=== PATIENT | female | born 1970 | race American Indian/Alaskan Native ===

== ENCOUNTER 2017-01-19 11:56 | Emergency (ER) | payer SELFPAY ==
[2017-01-19] MEDS ORDERED: MOTRIN PO ONE (15:55)
--- NOTE | 2017-01-19 15:59 | Emergency Department Report ---
HPI - General Chief Complaint: Pain General Time Seen by Provider: 01/19/17 13:41 - HPI HPI: 46-year-old -[place] female with no past medical history comes in for pain in the left side of her foot that radiates from the bottom of her left foot to the calf times. She reports that pain is worse when she steps or walks. She reports it even hurts when she puts a bedsheet over it. Patient does admit to eating a lot of meat. ED Past Medical Hx - Past Medical History Previous Medical History?: Yes Hx Hypertension: Yes (no meds) - Surgical History Past Surgical History?: No - Social History Smoking Status: Never Smoker Substance Use Type: Alcohol, Non Opiate Pain - Medications Home Medications: Home Medications Medication Instructions Recorded Confirmed Last Taken Type Indomethacin [Indocin] 50 mg RC TID #30 supp.rect 01/19/17 Unknown Rx ED Review of Systems ROS: Stated complaint: LFT SIDE BODY PAIN Other details as noted in HPI Physical Exam - Physical Exam Vital Signs: Vital Signs 01/19/17 12:06 Temperature 100.3 F H Pulse Rate 85 Respiratory 20 Rate Blood Pressure 171/95 O2 Sat by Pulse 98 Oximetry General: GENERAL: Alert and oriented x3, no apparent distress, Normal Gait, atraumatic. HEAD: Head is normocephalic and a-traumatic. EYES: Extra ocular muscles are intact. Pupils are equal, round, and reactive to light and accommodation. EXTREMITIES/MUSCULOSKELETAL: No cyanosis, clubbing, rash, lesions or edema. Full ROM bilaterally. UE/LE Pulses 2+ bilaterally. LE and UE 5+ strength bilaterally. Tenderness to the left great metatarsal in instep NEUROLOGIC: No focal Deficit, Cranial nerves II through XII are grossly intact. No loss of sensation, No facial droop, Negative rhomberg. PSYCHIATRIC: Mood is congruent with affect, denies suicidal or homicidal ideations. SKIN: Warm and dry, No lesions, No ulceration or induration present ED Course Vital Signs 01/19/17 12:06 Temperature 100.3 F H Pulse Rate 85 Respiratory 20 Rate Blood Pressure 171/95 O2 Sat by Pulse 98 Oximetry - Reevaluation(s) Reevaluation #1: 01/19/17 17:24 Patient reports that she feels better after having Ibuprofen. ED Medical Decision Making - Lab Data Result diagrams: 01/19/17 16:12 01/19/17 16:12 Critical care attestation.: If time is entered above; I have spent that time in minutes in the direct care of this critically ill patient, excluding procedure time. ED Disposition Clinical Impression: Elevated blood pressure Gout Qualifiers: Gout site: toe Gout etiology: unspecified cause Laterality: left Chronicity: acute Qualified Code(s): M10.9 - Gout, unspecified Disposition: DISCHARGED TO HOME OR SELFCARE Is pt being admited?: No Does the pt Need Aspirin: No Condition: Stable Instructions: Acute Gouty Arthritis (ED) Additional Instructions: Take medication as prescribed. Low purine diet which consist low meets no beer or wine. Take medication as prescribed. Highly recommend to have your blood pressure recheck since it was elevated in the ER. Prescriptions: Indomethacin [Indocin] 50 mg RC TID #30 supp.rect Referrals: PRIMARY CAREMD [Primary Care Provider] - 3-5 Days ADRIANE RADFORD MD [Staff Physician] - 3-5 Days [facility] [Outside] - 3-5 Days Forms: Work/School Release Form(ED)
--- NOTE | 2017-01-19 16:47 | XRay Report ---
FINAL REPORT EXAM: XR FOOT 2V LT HISTORY: left foot painToe in instep TECHNIQUE: 2 views Left foot PRIORS: None. FINDINGS: No fracture or dislocation identified. Joint spaces are within normal limits. No erosive bony change identified. No bony lesions are identified. IMPRESSION: Negative foot series
[2017-01-19 16:55] LABS: Anion Gap 20 mmol/L; BUN/Creatinine Ratio 14.28; Blood Urea Nitrogen 10 mg/dL (7-17); Calcium 9.7 mg/dL (8.4-10.2); Carbon Dioxide 23 mmol/L (22-30); Chloride 97.3 mmol/L (98-107); Glucose 90 mg/dL (65-100); Potassium 3.9 mmol/L (3.6-5.0); Sodium 136 mmol/L (137-145); Uric Acid 7.3 mg/dL (3.5-7.6)
[2017-01-19 17:03] LABS: Basophils % (Auto) 0.7 % (0.0-1.8); Eosinophils % (Auto) 1.2 % (0.0-4.3); Hematocrit 39.9 % (30.3-42.9); Hemoglobin 12.9 gm/dl (10.1-14.3); Mean Corpuscular HGB Conc 33 % (30-34); Mean Corpuscular Hemoglobin 30 pg (28-32); Mean Corpuscular Volume 91 fl (79-97); Platelet Count 332 K/mm3 (140-440); Red Blood Count 4.36 M/mm3 (3.65-5.03); Red Cell Distribution Width 13.5 % (13.2-15.2); White Blood Count 9.1 K/mm3 (4.5-11.0)
[2017-01-19 17:45] VITALS: BP 128/87
== END 2017-01-19 17:45 | disposition home or self-care (01) ==
LOC: ED 11:56
DX: I10 Essential (primary) hypertension (principal); M10.9 Gout, unspecified
CPT/HCPCS: 36415; 80048; 84550; 85025

== ENCOUNTER 2017-02-18 07:50 | Emergency (ER) | payer SELFPAY ==
[2017-02-18 08:06] VITALS: BP 146/84
--- NOTE | 2017-02-18 09:12 | Emergency Department Report ---
HPI - General Chief Complaint: Extremity Injury, Lower - HPI HPI: 46-year-old -[place] female comes in with complaint of bilateral foot pain times greater than one month. She describes the pain as sharp shooting pain with burning. She also complains of bilateral hand pain times a couple weeks same kind of pain in her palms of her hand. Sharp shooting. She also has complaints of acid reflux. Worse with lying down and feels liquid comes up to the back of her throat and nose. She denies any vomiting denies any fever denies any abdominal pain. She does admit that she has taken Zantac 450 mg twice a day without much relief. She also states she's taken Motrin and Advil for feet pain. Without much resolution of pain. ED Past Medical Hx - Past Medical History Hx Hypertension: Yes (no meds) Additional medical history: GOUT - Surgical History Past Surgical History?: No - Social History Smoking Status: Current Every Day Smoker Substance Use Type: Alcohol - Medications Home Medications: Home Medications Medication Instructions Recorded Confirmed Last Taken Type Indomethacin [Indocin] 50 mg RC TID #30 supp.rect 01/19/17 Unknown Rx Omeprazole 40 mg PO QDAY #30 capsule.dr 02/18/17 Unknown Rx traMADol [Ultram 50 MG tab] 50 mg PO Q6HR PRN #20 tablet 02/18/17 Unknown Rx ED Review of Systems ROS: Stated complaint: SHARP PAIN/HANDS/FEET/ACID REFLUX Other details as noted in HPI Constitutional: denies: chills, fever Eyes: denies: eye pain, eye discharge, vision change ENT: denies: ear pain, throat pain Respiratory: denies: cough, shortness of breath, wheezing Cardiovascular: denies: chest pain, palpitations Endocrine: no symptoms reported Gastrointestinal: denies: abdominal pain, nausea, vomiting, diarrhea Physical Exam - Physical Exam Vital Signs: Vital Signs 02/18/17 08:00 Temperature 98.3 F Pulse Rate 74 Respiratory 17 Rate Blood Pressure 146/84 O2 Sat by Pulse 97 Oximetry Physical Exam: GENERAL: Alert and oriented x3, no apparent distress, Normal Gait, atraumatic. HEAD: Head is normocephalic and a-traumatic. MOUTH:Mouth is well hydrated and without lesions. Tonsils nonerythematous or swollen, Uvula midline, Tongue not elevated. Mucous membranes are moist. Posterior pharynx clear, no exudate or lesions. Patent airways. NECK: Supple. Non edematous, No carotid bruits. No lymphadenopathy or thyromegaly. LUNGS: Symetrical with respiration, No wheezing, no rales or crackles, CTAB. HEART: S1, S2 present, regular rate and rhythm without murmur, no rubs, no gallops. ABDOMEN: No organomegaly was noted,Positive bowel sounds, soft, and non- distended. . Nontender to palpation on all Quadrants, NO CVA tenderness. BREAST: Symetrical, Supple bilaterally, No Masses, lumps, lesions, ulcerations. EXTREMITIES/MUSCULOSKELETAL: No cyanosis, clubbing, rash, lesions or edema. Full ROM bilaterally. UE/LE Pulses 2+ bilaterally. LE and UE 5+ strength bilaterally bilateral tenderness to the soles of the feet. NEUROLOGIC: No focal Deficit, Cranial nerves II through XII are grossly intact. No loss of sensation, No facial droop, Negative rhomberg. PSYCHIATRIC: Mood is congruent with affect, SKIN: Warm and dry, No lesions, No ulceration or induration present ED Course Vital Signs 02/18/17 08:00 Temperature 98.3 F Pulse Rate 74 Respiratory 17 Rate Blood Pressure 146/84 O2 Sat by Pulse 97 Oximetry ED Medical Decision Making - Medical Decision Making Patient's been evaluated by this provider fast track. Discussed patient that we will refer her to a case management assistant. Discussed with patient that we will place her on some omeprazole 40 mg daily. Discussed with patient that she needs to avoid lying down after eating. Avoid spicy foods avoid citric foods tomato-based foods sodas caffeine drinks. Discussed with patient that we will refer her to a audiology assistant for further evaluation of her feet. Discussed the patient I will give her a prescription for trauma at all for a few days if that helps her for feet. Critical care attestation.: If time is entered above; I have spent that time in minutes in the direct care of this critically ill patient, excluding procedure time. ED Disposition Clinical Impression: Bilateral foot pain GERD (gastroesophageal reflux disease) Qualifiers: Esophagitis presence: esophagitis presence not specified Qualified Code(s): K21.9 - Gastro-esophageal reflux disease without esophagitis Disposition: DISCHARGED TO HOME OR SELFCARE Is pt being admited?: No Does the pt Need Aspirin: No Condition: Stable Additional Instructions: Please follow up with the audiology assistant a case management assistant and her primary care provider for further evaluation. Please return to the emergency room symptoms persist or gets worse. Prescriptions: Omeprazole 40 mg PO QDAY #30 capsule. traMADol [Ultram 50 MG tab] 50 mg PO Q6HR PRN #20 tablet PRN Reason: Pain Referrals: PRIMARY CARE, [Primary Care Provider] - 3-5 Days MIKE SIMMONS DPM [Staff Physician] - 3-5 Days [facility] [Provider Group] - 3-5 Days [facility] [Outside] - 3-5 Days Forms: Work/School Release Form(ED)
== END 2017-02-18 09:45 | disposition home or self-care (01) ==
LOC: ED 07:50
DX: M79.671 Pain in right foot (principal); M79.672 Pain in left foot; K21.9 Gastro-esophageal reflux disease without esophagitis; I10 Essential (primary) hypertension; M10.9 Gout, unspecified; F17.200 Nicotine dependence, unspecified, uncomplicated
CPT/HCPCS: 99282

== ENCOUNTER 2017-06-05 10:57 | Emergency (ER) | payer OTHER ==
[2017-06-05 11:09] VITALS: BP 144/85
--- NOTE | 2017-06-05 11:43 | Emergency Department Report ---
ED Back Pain/Injury HPI - General Chief Complaint: Back Pain/Injury Stated Complaint: BACK PAIN Time Seen by Provider: 06/05/17 11:24 Source: patient, EMS Limitations: Physical Limitation - History of Present Illness Initial Comments: This is a 46-year-old female that presents to the ED c/o of back pain x1 day. Patient stated she was at work lifting sweet tea bucket at work and while putting it down she felt sharp pain to the back. Patient denies any trauma to region. Patient denies any numbness, tingling, n/v, bladder or bowel instability , SOB, chest pain, fever, chills, headache or stiff neck. Patient stated has history of back pain. Patient stated allergies aspirin. HX of HTN. MD Complaint: back pain -: Gradual, This morning Similar Symptoms Previously: Yes Place: work Radiation: none Severity: mild Severity scale (0 -10): 6 Quality: sharp Consistency: constant Improves With: immobilization, supine Worsens With: movement, walking Context: while lifting, turning/twisting Associated Symptoms: denies other symptoms. denies: confusion, weakness, chest pain, numbness, difficulty walking, cough, difficulty urinating, diaphoresis, incontinence, fever/chills, constipation, headaches, abdominal pain, loss of appetite, malaise, nausea/vomiting, rash, seizure, shortness of breath, syncope - Related Data Previous Rx's Medication Instructions Recorded Last Taken Type Cyclobenzaprine [Flexeril] 10 mg PO TID PRN #15 tablet 06/05/17 Unknown Rx Ibuprofen [Motrin 600 MG tab] 600 mg PO Q8H PRN #30 tablet 06/05/17 Unknown Rx Allergies Allergy/AdvReac Type Severity Reaction Status Date / Time aspirin Allergy Unknown Verified 06/05/17 11:05 ED Review of Systems ROS: Stated complaint: BACK PAIN Other details as noted in HPI Constitutional: denies: chills, fever Eyes: denies: eye pain, eye discharge, vision change ENT: denies: ear pain, throat pain Respiratory: denies: cough, shortness of breath, wheezing Cardiovascular: denies: chest pain, palpitations Endocrine: no symptoms reported Gastrointestinal: denies: abdominal pain, nausea, diarrhea Genitourinary: denies: urgency, dysuria, discharge Musculoskeletal: denies: back pain, joint swelling, arthralgia Skin: denies: rash, lesions Neurological: denies: headache, weakness, paresthesias Psychiatric: denies: anxiety, depression Hematological/Lymphatic: denies: easy bleeding, easy bruising ED Past Medical Hx - Past Medical History Previous Medical History?: No Hx Hypertension: Yes (no meds) Additional medical history: GOUT - Surgical History Past Surgical History?: No - Social History Smoking Status: Current Every Day Smoker Substance Use Type: Alcohol - Medications Home Medications: Home Medications Medication Instructions Recorded Confirmed Last Taken Type Cyclobenzaprine [Flexeril] 10 mg PO TID PRN #15 tablet 06/05/17 Unknown Rx Ibuprofen [Motrin 600 MG tab] 600 mg PO Q8H PRN #30 tablet 06/05/17 Unknown Rx ED Physical Exam - General Limitations: Physical Limitation General appearance: alert, in no apparent distress - Head Head exam: Present: atraumatic, normocephalic - Eye Eye exam: Present: normal appearance, PERRL, EOMI. Absent: scleral icterus, conjunctival injection, nystagmus, periorbital swelling, periorbital tenderness Pupils: Present: normal accommodation - ENT ENT exam: Present: normal exam, normal orophraynx, mucous membranes moist, TM's normal bilaterally, normal external ear exam - Neck Neck exam: Present: normal inspection, full ROM. Absent: tenderness, meningismus, lymphadenopathy, thyromegaly - Respiratory Respiratory exam: Present: normal lung sounds bilaterally. Absent: respiratory distress, wheezes, rales, rhonchi, stridor, chest wall tenderness, accessory muscle use - Cardiovascular Cardiovascular Exam: Present: regular rate, normal rhythm, normal heart sounds. Absent: bradycardia, tachycardia, irregular rhythm, systolic murmur, diastolic murmur, rubs, gallop - GI/Abdominal GI/Abdominal exam: Present: soft, normal bowel sounds. Absent: distended, tenderness, guarding, rebound, rigid, diminished bowel sounds - Rectal Rectal exam: Present: deferred - Extremities Exam Extremities exam: Present: normal inspection, full ROM, normal capillary refill. Absent: tenderness, pedal edema, joint swelling, calf tenderness - Back Exam Back exam: Present: normal inspection, full ROM, paraspinal tenderness (lumbar region). Absent: tenderness, CVA tenderness (R), CVA tenderness (L), muscle spasm, vertebral tenderness, rash noted - Expanded Back Exam Expanded Back exam: Present: normal rectal tone (as per patient). Absent: saddle anesthesia Back exam: Negative Straight Leg Raising: Left, Right - Neurological Exam Neurological exam: Present: alert, oriented X3, CN II-XII intact, normal gait, reflexes normal - Psychiatric Psychiatric exam: Present: normal affect, normal mood - Skin Skin exam: Present: warm, dry, intact, normal color. Absent: rash - Other Other exam information: Negative spinal tenderness. ED Course Vital Signs 06/05/17 11:06 Temperature 98.2 F Pulse Rate 64 Respiratory 22 Rate Blood Pressure 144/85 O2 Sat by Pulse 98 Oximetry - Reevaluation(s) Reevaluation #1: 06/05/17 11:46 Patient is laying in bed and speaking in full sentences with no signs of distress. ED Medical Decision Making - Medical Decision Making ED course; this is a 46-year-old female that presents with low back strain versus muscle spasm 1- patient hemodynamically stable. Patient was examined by myself. There is negative spinal tenderness. Exam of muscle spasm with low back strain. 2- patient be treated with Flexeril and ibuprofen and discharged. Patient received Toradol 30 mg IM the ED for pain. 3- patient was instructed to follow-up with her primary care doctor in 3-5 days or if symptoms such as such as bladder or bowel stability, numbness, tingling, chest pain or short of breath returns or ER as soon as possible. 4- At time time of discharge, the patient does not seem toxic or ill in appearance. No acute signs of distress noted. Patient agrees to discharge treatment plan of care. No further questions noted by the patient. Critical care attestation.: If time is entered above; I have spent that time in minutes in the direct care of this critically ill patient, excluding procedure time. ED Disposition Clinical Impression: Muscle spasm Low back strain Qualifiers: Encounter type: initial encounter Qualified Code(s): S39.012A - Strain of muscle, fascia and tendon of lower back, initial encounter Disposition: TO HOME OR SELFCARE Is pt being admited?: No Does the pt Need Aspirin: No Condition: Stable Instructions: Muscle Strain (ED), Low Back Strain (ED), Ibuprofen (By mouth), Cyclobenzaprine (By mouth) Additional Instructions: Take ibuprofen and Flexeril as prescribed. Do not operate heavy machinery while taking Flexeril due to sedation Follow-up with her primary care doctor 3-5 days or symptoms such as bladder or bowel stability, chest pain, shortness of breath, numbness or tingling return to emergency room as soon as possible. Prescriptions: Cyclobenzaprine [Flexeril] 10 mg PO TID PRN #15 tablet PRN Reason: Muscle Spasm Ibuprofen [Motrin 600 MG tab] 600 mg PO Q8H PRN #30 tablet PRN Reason: Pain Referrals: PRIMARY CAREMD [Referring] - 3-5 Days TERI EDWARDS MD [Staff Physician] - 3-5 Days [facility] [Outside] - 3-5 Days [facility] [Outside] - 3-5 Days Forms: Work/School Release Form(ED)
[2017-06-05] MEDS ORDERED: TORADOL IM ONE (11:52)
== END 2017-06-05 12:25 | disposition home or self-care (01) ==
LOC: ED 10:57
DX: S39.012A Strain of muscle, fascia and tendon of lower back, initial encounter (principal); I10 Essential (primary) hypertension; M10.9 Gout, unspecified; F17.210 Nicotine dependence, cigarettes, uncomplicated; Z88.6 Allergy status to analgesic agent; X50.0XXA Overexertion from strenuous movement or load, initial encounter; Y93.89 Activity, other specified; Y92.89 Other specified places as the place of occurrence of the external cause; Y99.8 Other external cause status
CPT/HCPCS: 96372; 99283; J1885

== ENCOUNTER 2017-10-13 12:01 | Emergency (ER) | payer SELFPAY ==
[2017-10-13 13:06] VITALS: BP 141/74
--- NOTE | 2017-10-13 15:48 | Emergency Department Report ---
ED Lower Extremity HPI - General Chief Complaint: Pain General Stated Complaint: PAIN IN HANDS/FEET Time Seen by Provider: 10/13/17 15:10 Source: patient Mode of arrival: Ambulatory Limitations: No Limitations - History of Present Illness Initial Comments: This is a 46-year-old female nontoxic, well nourished in appearance, no acute signs of distress presents to the ED with c/o of chronic intermittent foot pain. Patient denies any trauma to the region. Patient describes pain as aching with level of 6/10. Patient denies any numbness, tingling, fever, chills, headache, nausea, vomiting, stiff neck. Patient stated has also intermittent pains in the hands. Patient states allergies to aspirin. PMH includes HTN. Patient stated she walks a lot for work. MD Complaint: foot injury -: year(s) Injury: Foot: Right, Left Severity: mild Severity scale (0 -10): 8 Improves With: nothing Worsens With: nothing Associated Symptoms: ambulatory. denies: snap/pop sensation, swelling, numbness , tingling, unable to bear weight, able to partially bear weight - Related Data Previous Rx's Medication Instructions Recorded Last Taken Type Cyclobenzaprine [Flexeril] 10 mg PO TID PRN #15 tablet 06/05/17 Unknown Rx Ibuprofen [Motrin 600 MG tab] 600 mg PO Q8H PRN #30 tablet 06/05/17 Unknown Rx Ibuprofen [Motrin] 600 mg PO Q8H PRN #30 tablet 10/13/17 Unknown Rx predniSONE [Deltasone] 40 mg PO QDAY #5 tab 10/13/17 Unknown Rx Allergies Allergy/AdvReac Type Severity Reaction Status Date / Time aspirin Allergy Unknown Verified 06/05/17 11:05 ED Review of Systems ROS: Stated complaint: PAIN IN HANDS/FEET Other details as noted in HPI Constitutional: denies: chills, fever Eyes: denies: eye pain, eye discharge, vision change ENT: denies: ear pain, throat pain Respiratory: denies: cough, shortness of breath, wheezing Cardiovascular: denies: chest pain, palpitations Endocrine: no symptoms reported Gastrointestinal: denies: abdominal pain, nausea, diarrhea Genitourinary: denies: urgency, dysuria, discharge Musculoskeletal: arthralgia. denies: back pain, joint swelling Skin: denies: rash, lesions Neurological: denies: headache, weakness, paresthesias Psychiatric: denies: anxiety, depression Hematological/Lymphatic: denies: easy bleeding, easy bruising ED Past Medical Hx - Past Medical History Hx Hypertension: Yes (no meds) Additional medical history: GOUT - Social History Smoking Status: Current Every Day Smoker Substance Use Type: None - Medications Home Medications: Home Medications Medication Instructions Recorded Confirmed Last Taken Type Cyclobenzaprine [Flexeril] 10 mg PO TID PRN #15 tablet 06/05/17 Unknown Rx Ibuprofen [Motrin 600 MG tab] 600 mg PO Q8H PRN #30 tablet 06/05/17 Unknown Rx Ibuprofen [Motrin] 600 mg PO Q8H PRN #30 tablet 10/13/17 Unknown Rx predniSONE [Deltasone] 40 mg PO QDAY #5 tab 10/13/17 Unknown Rx ED Physical Exam - General Limitations: No Limitations General appearance: alert, in no apparent distress - Head Head exam: Present: atraumatic, normocephalic, normal inspection - Eye Eye exam: Present: normal appearance, PERRL, EOMI. Absent: scleral icterus, conjunctival injection, nystagmus, periorbital swelling, periorbital tenderness Pupils: Present: normal accommodation - ENT ENT exam: Present: normal exam, normal orophraynx, mucous membranes moist, TM's normal bilaterally, normal external ear exam - Neck Neck exam: Present: normal inspection, full ROM. Absent: tenderness, meningismus, lymphadenopathy, thyromegaly - Respiratory Respiratory exam: Present: normal lung sounds bilaterally. Absent: respiratory distress, wheezes, rales, rhonchi, stridor, chest wall tenderness, accessory muscle use, decreased breath sounds, prolonged expiratory - Cardiovascular Cardiovascular Exam: Present: regular rate, normal rhythm, normal heart sounds. Absent: bradycardia, tachycardia, irregular rhythm, systolic murmur, diastolic murmur, rubs, gallop - GI/Abdominal GI/Abdominal exam: Present: soft, normal bowel sounds. Absent: distended, tenderness, guarding, rebound, rigid, diminished bowel sounds - Rectal Rectal exam: Present: deferred - Extremities Exam Extremities exam: Present: normal inspection, full ROM, tenderness (plantar foot ), normal capillary refill. Absent: pedal edema, joint swelling, calf tenderness - Expanded Lower Extremity Exam Left Hip exam: Present: normal inspection (bilateral exam), full ROM Upper Leg exam: Present: normal inspection (bilateral exam), full ROM Knee exam: Present: normal inspection (bilateral exam), full ROM Lower Leg exam: Present: normal inspection (bilateral exam), full ROM Ankle exam: Present: normal inspection, full ROM Foot/Toe exam: Present: normal inspection (bilateral exam), full ROM, tenderness (plantar foot). Absent: swelling, abrasion, laceration, ecchymosis, deformity, crepidus, dislocation, erythema, amputation, puncture wound, foreign body, calcaneal tenderness, tenderness at base of 5th metatarsal, nail avulsion , subungual hematoma Neuro vascular tendon exam: Present: no vascular compromise (bilateral exam). Absent: pulse deficit, abnormal cap refill, motor deficit, sensory deficit, tendon deficit, extremity cold to touch, pallor, abnormal 2-point discrimination , decreased fine/light touch, foot drop, peroneal nerve deficit, significant pain with passive ROM of distal joint Gait: Positive: observed and normal 1 - pain 2 - pain - Back Exam Back exam: Present: normal inspection, full ROM. Absent: tenderness, CVA tenderness (R), CVA tenderness (L), muscle spasm, paraspinal tenderness, vertebral tenderness, rash noted - Neurological Exam Neurological exam: Present: alert, oriented X3, CN II-XII intact, normal gait, reflexes normal - Psychiatric Psychiatric exam: Present: normal affect, normal mood - Skin Skin exam: Present: warm, dry, intact, normal color. Absent: rash ED Course Vital Signs 10/13/17 13:05 Temperature 98.3 F Pulse Rate 75 Respiratory 16 Rate Blood Pressure 141/74 [Right] O2 Sat by Pulse 97 Oximetry - Reevaluation(s) Reevaluation #1: 10/13/17 16:28 Patient is speaking in full sentences with no signs of distress noted. ED Lower Extremity MDM - Medical Decision Making This is a 46-year-old female that presents with plantar fasciitis. Patient is stable and was examined by me. Patient received Solu-Medrol in the day. Patient discharged with Motrin and prednisone. Patient was instructed Follow- up with a primary care doctor in 3-5 days or if symptoms worsen and continue return to emergency room as soon as possible. At time time of discharge, the patient does not seem toxic or ill in appearance. No acute signs of distress noted. Patient agrees to discharge treatment plan of care. No further questions noted by the patient. Critical care attestation.: If time is entered above; I have spent that time in minutes in the direct care of this critically ill patient, excluding procedure time. ED Disposition Clinical Impression: Plantar fasciitis Disposition: [id number] TO HOME OR SELFCARE Is pt being admited?: No Does the pt Need Aspirin: No Condition: Stable Instructions: Plantar Fasciitis (ED), Prednisone (By mouth), Ibuprofen (By mouth) Additional Instructions: Follow-up with a primary care doctor in 3-5 days or if symptoms worsen and continue return to emergency room as soon as possible. Prescriptions: Ibuprofen [Motrin] 600 mg PO Q8H PRN #30 tablet PRN Reason: Pain predniSONE [Deltasone] 40 mg PO QDAY #5 tab Referrals: ADELA ESPARZA MD [Staff Physician] - 3-5 Days JAIME DAWSON MD [Staff Physician] - 3-5 Days [facility] [Outside] - 3-5 Days Forms: Work/School Release Form(ED)
== END 2017-10-13 16:55 | disposition home or self-care (01) ==
LOC: ED 12:01
DX: M72.2 Plantar fascial fibromatosis (principal); I10 Essential (primary) hypertension; F17.200 Nicotine dependence, unspecified, uncomplicated; M10.9 Gout, unspecified; G89.29 Other chronic pain; Z88.6 Allergy status to analgesic agent
CPT/HCPCS: 96372; 99281; J2930

== ENCOUNTER 2018-01-24 12:22 | Inpatient (IN) | payer OTHER ==
[2018-01-24 14:08] LABS: Basophils % (Auto) 0.5 % (0.0-1.8); Eosinophils % (Auto) 0.4 % (0.0-4.3); Hematocrit 41.8 % (30.3-42.9); Hemoglobin 13.6 gm/dl (10.1-14.3); Lymphocytes # (Auto) 2.6 K/mm3 (1.2-5.4); Lymphocytes % (Auto) 37.1 % (13.4-35.0); Mean Corpuscular HGB Conc 33 % (30-34); Mean Corpuscular Hemoglobin 30 pg (28-32); Mean Corpuscular Volume 93 fl (79-97); Monocytes # (Auto) 0.7 K/mm3 (0.0-0.8); Monocytes % (Auto) 9.5 % (0.0-7.3); Platelet Count 293 K/mm3 (140-440); Red Blood Count 4.48 M/mm3 (3.65-5.03); Red Cell Distribution Width 13.4 % (13.2-15.2)
[2018-01-24 14:19] LABS: BUN/Creatinine Ratio 16; Blood Urea Nitrogen 11 mg/dL (7-17); Calcium 9.2 mg/dL (8.4-10.2); Hemolysis Index 17
[2018-01-24] MEDS ORDERED: NITRO-BID 2% TP ONE (21:05)
[2018-01-24] MEDS ORDERED: PLAVIX PO ONE (21:05)
--- NOTE | 2018-01-24 21:22 | Emergency Department Report ---
HPI - General Chief Complaint: Pain General Time Seen by Provider: 01/24/18 20:54 - HPI HPI: Room 3 The patient is a 47-year-old female presenting with a chief complaint of chest pain. The patient states 3 days ago she awakened with a headache, whole body pain and intermittent shooting pain in her left chest. The patient states the chest pain is sometimes associated with shortness of breath but she denies nausea or vomiting. Patient is uncertain if she became diaphoretic with her pain. Patient denies pleurisy or any recent long flights/long car trips. Patient denies any history of fever. Patient denies productive cough. Patient states she's never had a stress test or cardiac catheterization Location: [See above] Duration: Intermittent 4 days Quality: Sharp Severity: Moderate Modifying factors: [see above] Context: [see above] Mode of transportation: [not driving] ED Past Medical Hx - Past Medical History Previous Medical History?: No Hx Hypertension: Yes (no meds) Additional medical history: GOUT - Surgical History Past Surgical History?: No - Family History Family history: no significant - Social History Smoking Status: Current Every Day Smoker (2 cigarettes daily) Substance Use Type: None (denies illicit drug use), Alcohol (occasional) - Medications Home Medications: Home Medications Medication Instructions Recorded Confirmed Last Taken Type Cyclobenzaprine [Flexeril] 10 mg PO TID PRN #15 tablet 06/05/17 Unknown Rx Ibuprofen [Motrin 600 MG tab] 600 mg PO Q8H PRN #30 tablet 06/05/17 Unknown Rx Ibuprofen [Motrin] 600 mg PO Q8H PRN #30 tablet 10/13/17 Unknown Rx predniSONE [Deltasone] 40 mg PO QDAY #5 tab 10/13/17 Unknown Rx ED Review of Systems ROS: Stated complaint: FLANK PAIN/BODY ACHES Other details as noted in HPI Constitutional: denies: diaphoresis (?), fever Respiratory: shortness of breath Cardiovascular: chest pain Gastrointestinal: denies: nausea, vomiting Neurological: headache Physical Exam - Physical Exam Vital Signs: Vital Signs 01/24/18 01/24/18 01/24/18 13:22 20:43 20:45 Temperature 98.9 F 98.6 F Pulse Rate 83 68 Respiratory 18 12 Rate Blood Pressure 144/101 Blood Pressure 148/85 [Left] O2 Sat by Pulse 96 97 98 Oximetry 01/24/18 20:46 Temperature Pulse Rate 71 Respiratory 12 Rate Blood Pressure 130/106 Blood Pressure [Left] O2 Sat by Pulse 97 Oximetry Physical Exam: GENERAL: The patient is well-developed well-nourished female lying on stretcher not appear to be in acute distress. [] HEENT: Normocephalic. Atraumatic. Extraocular motions are intact. Patient has moist mucous membranes. NECK: Supple. Trachea midline CHEST/LUNGS: Clear to auscultation. There is no respiratory distress noted. HEART/CARDIOVASCULAR: Regular. There is no tachycardia. There is no gallop rub or murmur. ABDOMEN: Abdomen is soft, nontender. Patient has normal bowel sounds. There is no abdominal distention. SKIN: There is no rash. There is no diaphoresis. NEURO: The patient is awake, alert, and oriented. The patient is cooperative. The patient has no focal neurologic deficits. The patient has normal speech. Cranial nerves II through XII grossly intact, no drift MUSCULOSKELETAL: There is no evidence of acute injury. ED Course Vital Signs 01/24/18 01/24/18 01/24/18 13:22 20:43 20:45 Temperature 98.9 F 98.6 F Pulse Rate 83 68 Respiratory 18 12 Rate Blood Pressure 144/101 Blood Pressure 148/85 [Left] O2 Sat by Pulse 96 97 98 Oximetry 01/24/18 20:46 Temperature Pulse Rate 71 Respiratory 12 Rate Blood Pressure 130/106 Blood Pressure [Left] O2 Sat by Pulse 97 Oximetry ED Medical Decision Making - Lab Data Result diagrams: 01/24/18 13:48 01/24/18 13:48 Laboratory Tests 01/24/18 01/24/18 01/24/18 13:48 13:48 16:23 WBC 7.1 RBC 4.48 Hgb 13.6 Hct 41.8 MCV 93 MCH 30 MCHC 33 RDW 13.4 Plt Count 293 Lymph % (Auto) 37.1 H [place] % (Auto) 9.5 H Eos % (Auto) 0.4 Baso % (Auto) 0.5 Lymph # 2.6 [place] # 0.7 Eos # 0.0 Baso # 0.0 Seg Neutrophils % 52.5 Seg Neutrophils # 3.7 Sodium 141 Potassium 4.6 Chloride 101.3 Carbon Dioxide 27 Anion Gap 17 BUN 11 Creatinine 0.7 Estimated GFR > 60 BUN/Creatinine Ratio 16 Glucose 96 Calcium 9.2 Troponin T < 0.010 < 0.010 01/24/18 19:34 WBC RBC Hgb Hct MCV MCH MCHC RDW Plt Count Lymph % (Auto) [place] % (Auto) Eos % (Auto) Baso % (Auto) Lymph # [place] # Eos # Baso # Seg Neutrophils % Seg Neutrophils # Sodium Potassium Chloride Carbon Dioxide Anion Gap BUN Creatinine Estimated GFR BUN/Creatinine Ratio Glucose Calcium Troponin T < 0.010 - EKG Data -: EKG Interpreted by Me EKG shows normal: sinus rhythm Rate: normal - EKG Data When compared to previous EKG there are: previous EKG unavailable Interpretation: nonspecific ST-T wave dequan (T-wave inversion in lead 3. Flattened/biphasic T-wave in lead aVF.) - Radiology Data Radiology results: image reviewed (chest x-ray) interpreted by me: Chest x-ray-no focal infiltrates, no pneumothorax - Differential Diagnosis ACS, GERD, pericarditis Critical care attestation.: If time is entered above; I have spent that time in minutes in the direct care of this critically ill patient, excluding procedure time. ED Disposition Clinical Impression: Chest pain Disposition: OP ADMIT IP TO THIS HOSP Is pt being admited?: Yes Does the pt Need Aspirin: No (allergic. Plavix given) Condition: Fair Instructions: Chest Pain (ED) Referrals: PATRICK WOODS MD [Primary Care Provider] - 3-5 Days Time of Disposition: 21:24 (hospitalist paged (Dr. Chantelle Ozuna))
--- NOTE | 2018-01-24 21:29 | XRay Report ---
FINAL REPORT EXAM: XR CHEST 1V AP HISTORY: chest pain COMPARISON: None available. FINDINGS: Frontal view(s) of the chest obtained. Cardiac silhouette within normal limits. No gross consolidation or effusion. No pneumothorax. IMPRESSION: No grossly acute findings.
[2018-01-24] MEDS ORDERED: APRESOLINE IV PRN (22:02)
[2018-01-24] MEDS ORDERED: MORPHINE IV PRN (22:02)
[2018-01-24] MEDS ORDERED: TYLENOL PO PRN (22:02)
[2018-01-24] MEDS ORDERED: ZOFRAN IV PRN (22:02)
[2018-01-24] MEDS ORDERED: SODIUM CHLORIDE FLUSH SYRINGE 10 ML IV PRN (22:02)
--- NOTE | 2018-01-24 22:13 | History and Physical Report ---
History of Present Illness Date of examination: 01/24/18 History of present illness: 47 year old woman with no medical problem comes to the emergency room complaining of abdominal pain x 1 month and chest pain for 3 days. Abdominal pain is in the left lower quadrant, sore pain, intermittent every 5 minutes, radiating to the pack, intensity 6/10, cannot identify exacerbating or relieving factors. Chest pain is in the left chest, sharp, intermittent every 15 minutes, intensity 4/10, cannot identify exacerbating or relieving factors. denies nausea, vomiting, shortness of breath, diaphoresis PAST MEDICAL HISTORY:None PAST SURGICAL HISTORY:None SOCIAL HISTORY:smoke 2 cigarettes/day, drink 1 beer a day, no drugs FAMILY HISTORY: hypertension Medications and Allergies Allergies Allergy/AdvReac Type Severity Reaction Status Date / Time aspirin Allergy Unknown Verified 06/05/17 11:05 Home Medications Medication Instructions Recorded Confirmed Last Taken Type Cyclobenzaprine [Flexeril] 10 mg PO TID PRN #15 tablet 06/05/17 Unknown Rx Ibuprofen [Motrin 600 MG tab] 600 mg PO Q8H PRN #30 tablet 06/05/17 Unknown Rx Ibuprofen [Motrin] 600 mg PO Q8H PRN #30 tablet 10/13/17 Unknown Rx predniSONE [Deltasone] 40 mg PO QDAY #5 tab 10/13/17 Unknown Rx Active Meds: Active Medications Hydralazine HCl (Apresoline) 5 mg IV Q6HR PRN PRN Reason: Hypertension Exam - Physical Exam Narrative exam: Gen. appearance: Patient lying in bed, no apparent distress HEENT: Normocephalic, atraumatic, pupils equally round and reactive to light, extraocular movement intact, and no sclericterus,. No JVD or thyromegaly or nodule,neck supple, no carotid bruit ,mucous membranes moist, no exudate or erythema Heart: S1, S2, regular rate and rhythm Lungs: Clear to auscultation bilaterally, breathing comfortable Abdomen: Positive bowel sounds, nontender, nondistended, no organomegaly Extremity: No edema, cyanosis, clubbing Skin: No rash, nodules, warm, dry Neuro: Oriented 3, cranial nerves II-12 intact, speech is fluent, motor and sensory intact - Constitutional Vitals: Temp Pulse Resp BP Pulse Ox 98.6 F 64 12 164/95 97 01/24/18 20:45 03/24/18 21:22 01/24/18 20:46 01/24/18 21:22 01/24/18 20:46 Results - Labs CBC & Chem 7: 01/24/18 13:48 01/24/18 13:48 Labs: Abnormal lab results 01/24/18 Range/Units 13:48 Lymph % (Auto) 37.1 H (13.4-35.0) % [place] % (Auto) 9.5 H (0.0-7.3) % - Imaging and Cardiology EKG: image reviewed Chest x-ray: image reviewed Assessment and Plan Assessment Abdominal pain Hypertensive urgency, new onset Chest pain secondary to number 2 Plan Admit to medicine Obtain CT of the abdomen Start IV hydralazine, start norvasc Check cardiac enzymes, stress test IV morphine, dvt prophalaxis
--- NOTE | 2018-01-24 22:40 | Cat Scan Report ---
FINAL REPORT EXAM: CT ABDOMEN PELVIS WO CON HISTORY: llq pain COMPARISON: None available. TECHNIQUE: Contiguous axial images were obtained. Additional sagittal and coronal reformatted images were obtained. FINDINGS: Mild linear atelectasis or scarring at the lung bases. Mild diffuse fatty infiltration of the liver. The liver is enlarged measuring 25 centimeters in length. No calcified gallstones. Spleen and pancreas are grossly unremarkable. Mild nodular thickening of adrenal glands. No nephrolithiasis or hydronephrosis. Aorta and IVC normal in caliber. No distal ureteral urinary bladder calculi. Uterus and ovaries are grossly unremarkable. Multiple pelvic phleboliths. No free fluid or lymphadenopathy in the pelvic cavity. The appendix is gas-filled and normal in caliber measuring up to 6 millimeters in diameter. No adjacent fat stranding or fluid. There may be ingested pill within the lumen of the cecum. Portions of the colon are decompressed. This limits evaluation wall thickening. No adjacent fat stranding or fluid to suggest active inflammation of the decompressed bowel. Tiny right inguinal hernia containing fat only. Lumbar vertebral body heights are preserved. Bony pelvis is grossly intact. IMPRESSION: No gross focal inflammatory changes of the abdomen and pelvis. Mild wall thickening of portions of the left colon. This limits evaluation wall thickening. No adjacent fat stranding or fluid to suggest active inflammation of the decompressed bowel. The appendix is normal in caliber. No obstructive uropathy urolithiasis. Mild enlargement of the liver with fatty infiltration.
[2018-01-25 00:23] LABS: Creatine Kinase MB 2.4 ng/mL (0.0-4.0)
[2018-01-25 06:12] LABS: Basophils % (Auto) 0.4 % (0.0-1.8); Eosinophils # (Auto) 0.1 K/mm3 (0.0-0.4); Eosinophils % (Auto) 1.2 % (0.0-4.3); Hematocrit 38.1 % (30.3-42.9); Hemoglobin 12.6 gm/dl (10.1-14.3); Lymphocytes # (Auto) 1.5 K/mm3 (1.2-5.4); Lymphocytes % (Auto) 25.5 % (13.4-35.0); Mean Corpuscular HGB Conc 33 % (30-34); Mean Corpuscular Hemoglobin 30 pg (28-32); Mean Corpuscular Volume 92 fl (79-97); Monocytes # (Auto) 0.5 K/mm3 (0.0-0.8); Monocytes % (Auto) 8.9 % (0.0-7.3); Platelet Count 284 K/mm3 (140-440); Red Blood Count 4.14 M/mm3 (3.65-5.03); Red Cell Distribution Width 13.2 % (13.2-15.2)
[2018-01-25 06:41] LABS: BUN/Creatinine Ratio 14; Blood Urea Nitrogen 13 mg/dL (7-17); Calcium 8.8 mg/dL (8.4-10.2); Hemolysis Index 6
[2018-01-25 06:42] LABS: Creatine Kinase MB 1.9 ng/mL (0.0-4.0)
[2018-01-25] MEDS ORDERED: LEXISCAN IV ONE ×2 (08:30→08:34)
--- NOTE | 2018-01-25 09:53 | Gastroenterology Consultation ---
History of Present Illness - Reason for Consult Consult date: 01/25/18 LLQ pain Requesting physician: DARWIN REYES - History of Present Illness The patient is a 47 year old female admitted with a 3 day history of body aches , chills, chest pain, mild diarrhea and an increase in LLQ discomfort which she has had for at least a month. Consultation was requested for abdominal pain. She has had no fever and denies passing BRBPR or melenic stools. No history of weight loss. The patient has never had a colonoscopy. CT scan revealed no definite diverticulitis although the colon was collapsed in the left side and less sensitive for evaluation of wall thickening. No FH of IBD or colon neoplasia. She smokes a few cigarettes daily and has 1 beer per day. Past History Past Medical History: No medical history Past Surgical History: No surgical history Social history: smoking Medications and Allergies Allergies Allergy/AdvReac Type Severity Reaction Status Date / Time aspirin Allergy Unknown Verified 06/05/17 11:05 Home Medications Medication Instructions Recorded Confirmed Last Taken Type Cyclobenzaprine [Flexeril] 10 mg PO TID PRN #15 tablet 06/05/17 Unknown Rx Ibuprofen [Motrin 600 MG tab] 600 mg PO Q8H PRN #30 tablet 06/05/17 Unknown Rx Ibuprofen [Motrin] 600 mg PO Q8H PRN #30 tablet 10/13/17 Unknown Rx predniSONE [Deltasone] 40 mg PO QDAY #5 tab 10/13/17 Unknown Rx Active Meds: Active Medications Acetaminophen (Tylenol) 650 mg PO Q4H PRN PRN Reason: Pain MILD(1-3)/Fever >100.5/BHAT Amlodipine Besylate (Norvasc) 5 mg PO QDAY VIRY Enoxaparin Sodium (Lovenox) 40 mg SUB-Q QDAY VIRY Hydralazine HCl (Apresoline) 5 mg IV Q6H PRN PRN Reason: Hypertension Morphine Sulfate (Morphine) 2 mg IV Q4H PRN PRN Reason: Pain, Moderate (4-6) Ondansetron HCl (Zofran) 4 mg IV Q8H PRN PRN Reason: Nausea And Vomiting Sodium Chloride (Sodium Chloride Flush Syringe 10 Ml) 10 ml IV BID VIRY Sodium Chloride (Sodium Chloride Flush Syringe 10 Ml) 10 ml IV PRN PRN PRN Reason: LINE FLUSH Review of Systems - Review of Systems Constitutional: chills, fatigue, no weight loss, no weight gain, no fever Eyes: no change in vision Ears, Nose, Throat: no decreased hearing, no difficulty swallowing Breasts: deferred Cardiovascular: chest pain, no rapid/irregular heart beat, no shortness of breath, no syncope Respiratory: no shortness of breath, no wheezing Gastrointestinal: abdominal pain, no nausea, no vomiting, no constipation, no change in bowel habits, no melena, no hematochezia Rectal: no pain, no incontinence, no bleeding Female Genitourinary: deferred Musculoskeletal: no gait dysfunction, no joint pain, no muscle pain Integumentary: no rash, no pruritis, no jaundice Neurological: no paralysis, no weakness, no memory loss Psychiatric: no anxiety Hematologic/Lymphatic: no easy bruising, no easy bleeding Allergic/Immunologic: no wheezing Exam - Constitutional Vital Signs: Temp Pulse Resp BP Pulse Ox 98.9 F 69 18 103/60 99 01/25/18 08:44 01/25/18 08:44 01/25/18 08:44 01/25/18 08:44 01/25/18 08:44 General appearance: no acute distress, well-nourished - EENT Eyes: PERRL ENT: hearing intact, clear oral mucosa, dentition normal - Neck Neck: supple, normal ROM, no masses or JVD - Respiratory Respiratory effort: normal Respiratory: bilateral: CTA - Breasts Breasts: deferred - Cardiovascular Rhythm: regular Heart Sounds: Present: S1 & S2. Absent: gallop, rub Extremities: pulses intact, No edema, normal color, Full ROM - Gastrointestinal General gastrointestinal: Present: soft, tender (LLQ tenderness), non-distended , normal bowel sounds. Absent: hepatomegaly, splenomegaly, mass Rectal Exam: deferred - Genitourinary Female Genitourinary: deferred - Integumentary Integumentary: Present: clear, warm, dry - Neurologic Neurological: alert and oriented x3 - Psychiatric Psychiatric: appropriate mood/affect, intact judgment & insight, memory intact - Labs CBC & Chem 7: 01/25/18 05:51 01/25/18 05:51 Lab Results: Laboratory Results - last 24 hr 01/24/18 01/24/18 01/24/18 13:48 13:48 16:23 WBC 7.1 RBC 4.48 Hgb 13.6 Hct 41.8 MCV 93 MCH 30 MCHC 33 RDW 13.4 Plt Count 293 Lymph % (Auto) 37.1 H [place] % (Auto) 9.5 H Eos % (Auto) 0.4 Baso % (Auto) 0.5 Lymph # 2.6 [place] # 0.7 Eos # 0.0 Baso # 0.0 Seg Neutrophils % 52.5 Seg Neutrophils # 3.7 Sodium 141 Potassium 4.6 Chloride 101.3 Carbon Dioxide 27 Anion Gap 17 BUN 11 Creatinine 0.7 Estimated GFR > 60 BUN/Creatinine Ratio 16 Glucose 96 Calcium 9.2 Total Creatine Kinase CK-MB (CK-2) CK-MB (CK-2) Rel Index Troponin T < 0.010 < 0.010 01/24/18 01/24/18 01/25/18 19:34 23:14 05:51 WBC 6.0 RBC 4.14 Hgb 12.6 Hct 38.1 MCV 92 MCH 30 MCHC 33 RDW 13.2 Plt Count 284 Lymph % (Auto) 25.5 [place] % (Auto) 8.9 H Eos % (Auto) 1.2 Baso % (Auto) 0.4 Lymph # 1.5 [place] # 0.5 Eos # 0.1 Baso # 0.0 Seg Neutrophils % 64.0 Seg Neutrophils # 3.9 Sodium Potassium Chloride Carbon Dioxide Anion Gap BUN Creatinine Estimated GFR BUN/Creatinine Ratio Glucose Calcium Total Creatine Kinase 302 H CK-MB (CK-2) 2.4 CK-MB (CK-2) Rel Index 0.7 Troponin T < 0.010 < 0.010 01/25/18 01/25/18 05:51 05:51 WBC RBC Hgb Hct MCV MCH MCHC RDW Plt Count Lymph % (Auto) [place] % (Auto) Eos % (Auto) Baso % (Auto) Lymph # [place] # Eos # Baso # Seg Neutrophils % Seg Neutrophils # Sodium 136 L Potassium 4.5 Chloride 97.6 L Carbon Dioxide 27 Anion Gap 16 BUN 13 Creatinine 0.9 Estimated GFR > 60 BUN/Creatinine Ratio 14 Glucose 110 H Calcium 8.8 Total Creatine Kinase 258 H CK-MB (CK-2) 1.9 CK-MB (CK-2) Rel Index 0.7 Troponin T < 0.010 - Imaging CT Scan: report reviewed Assessment and Plan - Patient Problems (1) LLQ abdominal pain Current Visit: Yes Status: Acute Plan to address problem: May have mild diverticulitis although no definite evidence on CT scan. Would treat empirically for 10 days with Cipro and Flagyl and plan for outpatient colonoscopy. She is stable clinically and has a benign abdomen. Thank you for asking us to see her in consultation. (2) Chest pain Current Visit: Yes Status: Acute
--- NOTE | 2018-01-25 11:25 | Progress Note ---
Assessment and Plan Assessment and plan: Chest pain. Await Lexiscan results. Continue telemetry monitoring. EKG and cardiac isoenzymes are negative. Left lower quadrant abdominal pain. Etiology may be secondary to mild diverticulitis but no definite evidence on CT scan. Would treat empirically for 10 days with Cipro and Flagyl and plan for outpatient colonoscopy. Disposition. Patient will likely discharge in a.m. History Interval history: No present concerns or complaints for chest pain. Patient still complains of left lower abdominal pain Hospitalist Physical - Constitutional Vitals: Temp Pulse Resp BP Pulse Ox 98.9 F 69 18 103/60 99 01/25/18 08:44 01/25/18 08:44 01/25/18 08:44 01/25/18 08:44 01/25/18 08:44 General appearance: Present: no acute distress, well-nourished - EENT Eyes: Present: PERRL, EOM intact ENT: hearing intact, clear oral mucosa, dentition normal - Neck Neck: Present: supple, normal ROM - Respiratory Respiratory effort: normal Respiratory: bilateral: CTA - Cardiovascular Rhythm: regular Heart Sounds: Present: S1 & S2. Absent: gallop, rub - Extremities Extremities: no ischemia, No edema, Full ROM - Abdominal General gastrointestinal: soft, tender, non-distended, normal bowel sounds Localized gastrointestinal: tender: LLQ (mild) - Integumentary Integumentary: Present: clear, warm, dry - Neurologic Neurologic: CNII-XII intact, moves all extremities Results - Labs CBC & Chem 7: 01/25/18 05:51 01/25/18 05:51 Labs: Laboratory Last Values WBC 6.0 K/mm3 (4.5-11.0) 01/25/18 05:51 RBC 4.14 M/mm3 (3.65-5.03) 01/25/18 05:51 Hgb 12.6 gm/dl (10.1-14.3) 01/25/18 05:51 Hct 38.1 % (30.3-42.9) 01/25/18 05:51 MCV 92 fl (79-97) 01/25/18 05:51 MCH 30 pg (28-32) 01/25/18 05:51 MCHC 33 % (30-34) 01/25/18 05:51 RDW 13.2 % (13.2-15.2) 01/25/18 05:51 Plt Count 284 K/mm3 (140-440) 01/25/18 05:51 Lymph % (Auto) 25.5 % (13.4-35.0) 01/25/18 05:51 [place] % (Auto) 8.9 % (0.0-7.3) H 01/25/18 05:51 Eos % (Auto) 1.2 % (0.0-4.3) 01/25/18 05:51 Baso % (Auto) 0.4 % (0.0-1.8) 01/25/18 05:51 Lymph # 1.5 K/mm3 (1.2-5.4) 01/25/18 05:51 [place] # 0.5 K/mm3 (0.0-0.8) 01/25/18 05:51 Eos # 0.1 K/mm3 (0.0-0.4) 01/25/18 05:51 Baso # 0.0 K/mm3 (0.0-0.1) 01/25/18 05:51 Seg Neutrophils % 64.0 % (40.0-70.0) 01/25/18 05:51 Seg Neutrophils # 3.9 K/mm3 (1.8-7.7) 01/25/18 05:51 Sodium 136 mmol/L (137-145) L 01/25/18 05:51 Potassium 4.5 mmol/L (3.6-5.0) 01/25/18 05:51 Chloride 97.6 mmol/L (98-107) L 01/25/18 05:51 Carbon Dioxide 27 mmol/L (22-30) 01/25/18 05:51 Anion Gap 16 mmol/L 01/25/18 05:51 BUN 13 mg/dL (7-17) 01/25/18 05:51 Creatinine 0.9 mg/dL (0.7-1.2) 01/25/18 05:51 Estimated GFR > 60 ml/min 01/25/18 05:51 BUN/Creatinine Ratio 14 % 01/25/18 05:51 Glucose 110 mg/dL (65-100) H 01/25/18 05:51 Calcium 8.8 mg/dL (8.4-10.2) 01/25/18 05:51 Total Creatine Kinase 258 units/L (30-135) H 01/25/18 05:51 CK-MB (CK-2) 1.9 ng/mL (0.0-4.0) 01/25/18 05:51 CK-MB (CK-2) Rel Index 0.7 (0-4) 01/25/18 05:51 Troponin T < 0.010 ng/mL (0.00-0.029) 01/25/18 05:51
--- NOTE | 2018-01-25 11:40 | Treadmill Report ---
THALLIUM STRESS TEST LEFT VENTRICLE: Left ventricular chamber size is within normal. Perfusion study demonstrates homogeneous uptake of the tracer in all segments, no significant perfusion defects identified. Gated analysis demonstrates normal left ventricular systolic function, ejection fraction 66%. CONCLUSION: Normal myocardial perfusion study. JOB# [id number] CA/NTS
[2018-01-25] MEDS: NORVASC PO SCH (12:53)
[2018-01-25] MEDS: LOVENOX SUB-Q SCH (12:54)
[2018-01-25] MEDS: LEVAQUIN PO SCH (12:54)
[2018-01-25] MEDS: SODIUM CHLORIDE FLUSH SYRINGE 10 ML IV SCH ×2 (12:56→21:49)
[2018-01-25] MEDS: FLAGYL PO SCH ×2 (13:00→21:48)
[2018-01-26] MEDS: FLAGYL PO SCH (05:34)
--- NOTE | 2018-01-26 08:06 | Discharge Summary ---
Providers - Providers Date of Admission: 01/24/18 22:02 Date of discharge: 01/26/18 Attending physician: SYDNEE QUIGLEY 01/25/18 08:41 Consult to Physician [CONS] Routine Comment: Consulting Provider: MARCELO HORTON Physician Instructions: Reason For Exam: colonic wall thickening Primary care physician: PATRICK WOODS Hospitalization Reason for admission: cp and abd pain Condition: Fair Hospital course: The patient is a 47 year old female admitted with a 3 day history of body aches , chills, chest pain, mild diarrhea and an increase in LLQ discomfort which she has had for at least a month. The patient also complained of chest pain. GI Consultation was requested for abdominal pain. She has had no fever and denies passing BRBPR or melenic stools. No history of weight loss. The patient has never had a colonoscopy. CT scan revealed no definite diverticulitis although the colon was collapsed in the left side and less sensitive for evaluation of wall thickening. GI felt the patient may have mild diverticulitis that was treated empirically. Recommendations were for antibiotics of Cipro and Flagyl for 10 days and follow-up with GI as an outpatient for potential colonoscopy. Stress test was completed for the chest pain which was found to be negative for ischemia. Etiology of chest pain likely GERD. Dedicated discharge time 32 minutes. Disposition: - TO HOME OR SELFCARE Time spent for discharge: 32 - Discharge Diagnoses (1) Diverticulitis Status: Acute (2) Chest pain Status: Acute (3) LLQ abdominal pain Status: Acute (4) GERD (gastroesophageal reflux disease) Status: Acute Core Measure Documentation - Palliative Care Palliative Care/ Comfort Measures: Not Applicable - Core Measures Any of the following diagnoses?: none Exam - Constitutional Vitals: Temp Pulse Resp BP Pulse Ox 98.4 F 68 20 134/77 96 01/26/18 04:45 01/26/18 04:45 01/26/18 04:45 01/26/18 04:45 01/26/18 04:45 General appearance: Present: no acute distress, well-nourished - EENT Eyes: Present: PERRL ENT: hearing intact, clear oral mucosa - Neck Neck: Present: supple, normal ROM - Respiratory Respiratory effort: normal Respiratory: bilateral: CTA - Cardiovascular Heart Sounds: Present: S1 & S2. Absent: rub, click - Extremities Extremities: pulses symmetrical, No edema Peripheral Pulses: within normal limits - Abdominal General gastrointestinal: Present: soft, non-tender, non-distended, normal bowel sounds Female genitourinary: Present: normal - Integumentary Integumentary: Present: clear, warm, dry - Musculoskeletal Musculoskeletal: gait normal, strength equal bilaterally - Psychiatric Psychiatric: appropriate mood/affect, intact judgment & insight - Neurologic Neurologic: CNII-XII intact, moves all extremities Plan Activity: no restrictions Weight Bearing Status: Full Weight Bearing Diet: regular Follow up with: PATRICK WOODS MD [Primary Care Provider] - 3-5 Days EN GLYNN MD [Staff Physician] - 7 Days Prescriptions: amLODIPine [Norvasc] 5 mg PO QDAY #30 tablet Cyclobenzaprine [Flexeril 10 MG TAB] 10 mg PO TID PRN #15 tablet PRN Reason: Muscle Spasm Levofloxacin [Levaquin TAB] 500 mg PO Q24HR #9 tablet metroNIDAZOLE [Flagyl TAB] 500 mg PO Q8HR #27 tablet Pantoprazole [Protonix TAB] 20 mg PO QDAY #30 tablet.
[2018-01-26] MEDS: LEVAQUIN PO SCH (09:01)
[2018-01-26] MEDS: LOVENOX SUB-Q SCH (09:01)
[2018-01-26] MEDS: NORVASC PO SCH (09:02)
[2018-01-26] MEDS: SODIUM CHLORIDE FLUSH SYRINGE 10 ML IV SCH (09:03)
[2018-01-26] MEDS ORDERED: PROTONIX PO SCH (10:00)
[2018-01-26 12:40] VITALS: BP 133/71
== END 2018-01-26 12:40 | disposition home or self-care (01) | DRG 392 ==
LOC: ED 12:22 → 4A 22:02
PROVIDERS: ADMIT Internal Medicine; ATTEND Hospitalist
DX: K21.9 Gastro-esophageal reflux disease without esophagitis (principal); K57.92 Diverticulitis of intestine, part unspecified, without perforation or abscess without bleeding; I16.0 Hypertensive urgency; F17.210 Nicotine dependence, cigarettes, uncomplicated; Z79.899 Other long term (current) drug therapy; Z82.49 Family history of ischemic heart disease and other diseases of the circulatory system; Z88.6 Allergy status to analgesic agent
CPT/HCPCS: 36415; 71045; 74176; 78452; 80048; 82550; 82553; 84484; 85025; 93005; 93010; 93017; A9502; J1650; J2785

== ENCOUNTER 2018-05-13 10:22 | Emergency (ER) | payer SELFPAY ==
--- NOTE | 2018-05-13 12:21 | Emergency Department Report ---
ED Shortness of Breath HPI - General Chief Complaint: Dizziness Stated Complaint: FEEL FAINT, TIGHTNESS IN CHEST, SOB AND DIZZINESS Time Seen by Provider: 05/13/18 12:13 Source: patient Mode of arrival: Ambulatory Limitations: No Limitations - History of Present Illness Initial Comments: This is a 47-year-old female patient here complained of dizziness and chest tightness which shortness of breath unable to get focused. She says she was here 2 days ago but there is no record to confirm that. Her last visit was in January 2018 and they did multiple workup on her to include cardiac stress test which was negative. She had lab work done which were within normal limits. Patient was also admitted and seen by cardiologists. Patient says she recently started a new medication: Amlodipine but she was having symptoms prior to the amlodipine. She says she possible of allergic reaction but patient said that prior to multiple pain she was having an symptoms. She says she feels a little bit anxious that she recently quit cigarette smoking 2 weeks ago. Chest tightness is 7 out of 10 that comes and goes and she denies any cardiac related issue. Denies any recent long distance travel by car or plane. Denies being on control or any history of cancer. Denies any convalescent period or any swelling to her legs. Pain is tight and does not yet worse with inspiration. She says she's been taking [id number] medication. She is here to be evaluated. She does have a primary care physician MD Complaint: chest pain (dizziness) Onset/Timin -: days(s) Radiation: other (none) Severity: moderate Pain Scale: 7 Quality: other (tight) Consistency: intermittent Improves With: nothing Worsens With: nothing Known History Of: other (hypertension) Context: recent URI, anxiety Associated Symptoms: chest pain, other (dizziness and shortness of breath) Treatments Prior to Arrival: other ([id number] medication that she doesn' t know) - Related Data Home Oxygen Therapy: No Home Medications Medication Instructions Recorded Confirmed Last Taken Omeprazole 20 mg PO DAILY 01/26/18 01/26/18 Unknown Previous Rx's Medication Instructions Recorded Last Taken Type predniSONE [Deltasone] 40 mg PO QDAY #5 tab 10/13/17 Unknown Rx Cyclobenzaprine [Flexeril 10 MG 10 mg PO TID PRN #15 tablet 01/26/18 Unknown Rx TAB] Levofloxacin [Levaquin TAB] 500 mg PO Q24HR #9 tablet 01/26/18 Unknown Rx Pantoprazole [Protonix TAB] 20 mg PO QDAY #30 tablet. 01/26/18 Unknown Rx amLODIPine [Norvasc] 5 mg PO QDAY #30 tablet 01/26/18 Unknown Rx metroNIDAZOLE [Flagyl TAB] 500 mg PO Q8HR #27 tablet 01/26/18 Unknown Rx Cetirizine HCl [ZyrTEC] 10 mg PO QAM 14 Days #14 capsule 05/13/18 Unknown Rx Fluticasone [Flonase] 1 spray NS QDAY 14 Days #1 bottle 05/13/18 Unknown Rx Meclizine [Antivert] 25 mg PO Q8H PRN #12 tablet 05/13/18 Unknown Rx Allergies Allergy/AdvReac Type Severity Reaction Status Date / Time aspirin Allergy Unknown Verified 06/05/17 11:05 ED Review of Systems ROS: Stated complaint: FEEL FAINT, TIGHTNESS IN CHEST, SOB AND DIZZINESS Other details as noted in HPI Constitutional: denies: chills, fever Eyes: denies: eye pain, eye discharge, vision change ENT: congestion. denies: ear pain, throat pain, dental pain Respiratory: shortness of breath, SOB with exertion, SOB at rest. denies: cough , orthopnea, wheezing Cardiovascular: chest pain. denies: palpitations, edema, syncope Endocrine: no symptoms reported Gastrointestinal: denies: abdominal pain, nausea, vomiting, diarrhea Genitourinary: denies: urgency, dysuria, hematuria, discharge Musculoskeletal: denies: back pain, joint swelling, arthralgia, myalgia Skin: denies: rash, lesions Neurological: denies: headache, weakness, numbness, paresthesias Psychiatric: anxiety Hematological/Lymphatic: denies: easy bleeding, easy bruising ED Past Medical Hx - Past Medical History Previous Medical History?: Yes Hx Hypertension: Yes (no meds) Hx Congestive Heart Failure: No Hx Diabetes: No Hx Asthma: No Hx COPD: No Additional medical history: GOUT - Surgical History Past Surgical History?: Yes - Family History Family history: hypertension - Social History Smoking Status: Former Smoker Substance Use Type: Alcohol, Prescribed - Medications Home Medications: Home Medications Medication Instructions Recorded Confirmed Last Taken Type predniSONE [Deltasone] 40 mg PO QDAY #5 tab 10/13/17 01/26/18 Unknown Rx Cyclobenzaprine [Flexeril 10 MG 10 mg PO TID PRN #15 tablet 01/26/18 Unknown Rx TAB] Levofloxacin [Levaquin TAB] 500 mg PO Q24HR #9 tablet 01/26/18 Unknown Rx Omeprazole 20 mg PO DAILY 01/26/18 01/26/18 Unknown History Pantoprazole [Protonix TAB] 20 mg PO QDAY #30 tablet. 01/26/18 Unknown Rx amLODIPine [Norvasc] 5 mg PO QDAY #30 tablet 01/26/18 Unknown Rx metroNIDAZOLE [Flagyl TAB] 500 mg PO Q8HR #27 tablet 01/26/18 Unknown Rx Cetirizine HCl [ZyrTEC] 10 mg PO QAM 14 Days #14 capsule 05/13/18 Unknown Rx Fluticasone [Flonase] 1 spray NS QDAY 14 Days #1 bottle 05/13/18 Unknown Rx Meclizine [Antivert] 25 mg PO Q8H PRN #12 tablet 05/13/18 Unknown Rx ED Physical Exam - General Limitations: No Limitations General appearance: alert, in no apparent distress - Head Head exam: Present: atraumatic, normocephalic, normal inspection - Eye Eye exam: Present: normal appearance, PERRL, EOMI Pupils: Present: normal accommodation - ENT ENT exam: Present: normal exam, normal orophraynx, mucous membranes moist, normal external ear exam, other (bilateral nasal mucosa pale and boggy and no frontal or macular sinus tenderness.). Absent: TM's normal bilaterally ( bilateral TM congested without erythema) - Neck Neck exam: Present: normal inspection, full ROM, other (no C-spine tenderness). Absent: tenderness, lymphadenopathy - Respiratory Respiratory exam: Present: normal lung sounds bilaterally. Absent: respiratory distress, wheezes, rales, rhonchi, stridor, chest wall tenderness, accessory muscle use, decreased breath sounds, prolonged expiratory - Cardiovascular Cardiovascular Exam: Present: regular rate, normal rhythm, normal heart sounds. Absent: systolic murmur, diastolic murmur - GI/Abdominal GI/Abdominal exam: Present: soft, normal bowel sounds. Absent: distended, tenderness, guarding, rebound, rigid, organomegaly, mass, bruit, pulsatile mass - Extremities Exam Extremities exam: Present: normal inspection, full ROM, normal capillary refill , other (clubbing, cyanosis or edema. +2 pulses all extremities). Absent: tenderness, pedal edema, joint swelling, calf tenderness - Back Exam Back exam: Present: normal inspection, full ROM, other (ambulates without any difficulties). Absent: tenderness, CVA tenderness (R), CVA tenderness (L), muscle spasm, paraspinal tenderness, vertebral tenderness, rash noted - Neurological Exam Neurological exam: Present: alert, oriented X3, normal gait, reflexes normal. Absent: motor sensory deficit - Psychiatric Psychiatric exam: Present: normal affect, normal mood. Absent: anxious - Skin Skin exam: Present: warm, dry, intact, normal color. Absent: rash ED Course Vital Signs 05/13/18 05/13/18 10:39 17:38 Temperature 98.1 F 98.7 F Pulse Rate 67 64 Respiratory 18 18 Rate Blood Pressure 147/88 Blood Pressure 161/96 [Left] O2 Sat by Pulse 98 99 Oximetry - Reevaluation(s) Reevaluation #1: 05/13/18 14:50 Patient is stable and no change in assessment. Awaiting CT scan of the head and CTA of the chest. D-dimer elevated. Reevaluation #2: 05/13/18 16:55 Patient stable in no acute distress. Awaiting in CT scan. No chest pain or shortness of breath at present. She is up and ambulating without any dizziness. Patient's evening injuring can. Reevaluation #3: 05/13/18 17:56 Patient stable and she says she feels better. I gave her results of her CT scan of the head which is negative and CT of the chest which is negative. She says she feels better results. I also gave her lab results. ED Medical Decision Making - Lab Data Result diagrams: 05/13/18 13:42 05/13/18 13:42 - EKG Data -: EKG Interpreted by Me (Dr. Garcia) EKG shows normal: sinus rhythm Rate: normal (63 bpm) - EKG Data Interpretation: no acute changes, normal EKG - Radiology Data Radiology results: report reviewed CTA of the chest, CT scan of the head without contrast and chest x-ray dictated by radiologist and report reviewed by myself along with reviewed films and all diagnostic tests are negative. Findings Patient: BACILIO SHEN#: [id number] : 1970 Acct:[id number] Age/Sex: 47 / F ADM Date: 05/13/18 Loc: ED Attending Dr: Ordering Physician: JEFF LEARY Date of Service: 05/13/18 Procedure(s): CT head/brain wo con Accession Number(s): [id number] cc: JEFF LEARY FINAL REPORT EXAM: CT HEAD/BRAIN WO CON CT scan of TECHNIQUE: CT head without contrast PRIORS: None. FINDINGS: Exam is limited due to motion artifact. Within the limits of the study no acute intra-axial or extra-axial hemorrhage is identified. There is no evidence of midline shift or mass effect. The ventricles and sulci are within normal limits. Mills-white matter differentiation is intact. No acute parenchymal abnormalities seen. Bony calvarium is grossly intact. Visualized portions of the mastoids and paranasal sinuses are unremarkable. IMPRESSION: Some limitations due to motion artifact. No acute abnormality identified Transcribed By: PETER Dictated By: ALEKSANDR MARIN MD Electronically Authenticated By: ALEKSANDR MARIN MD Signed Date/Time: 05/13/18 1635 DD/ 1635 TD/TT: 05/13/18 1635 Patient: BACILIO SHEN MR#: [id number] : 1970 Acct:[id number] Age/Sex: 47 / F ADM Date: 05/13/18 Loc: ED Attending Dr: Ordering Physician: JEFF LEARY Date of Service: 05/13/18 Procedure(s): XR chest routine 2V Accession Number(s): [id number] cc: JEFF LEARY Fluoro Time In Minutes: CHEST 2 VIEWS INDICATION: Shortness of breath. COMPARISON: 01/24/2018. FINDINGS: PA and lateral chest radiographs demonstrate normal cardiomediastinal silhouette. Clear lungs. Intact bones. CONCLUSION: No acute disease in the chest. Thank you for the opportunity to participate in this patient's care. Transcribed By: RS Dictated By: SHANE HURD MD Electronically Authenticated By: SHANE HURD MD Signed Date/Time: 05/13/18 1356 DD/ 1355 TD/TT: 05/13/18 1356 F Patient: BACILIO SHEN MR#: [id number] : 1970 Acct:[id number] Age/Sex: 47 / F ADM Date: 05/13/18 Loc: ED Attending Dr: Ordering Physician: JEFF LEARY Date of Service: 05/13/18 Procedure(s): CT angio chest Accession Number(s): [id number] cc: JEFF LEARY FINAL REPORT EXAM: CT ANGIO CHEST HISTORY: SOB/CP/elevated D dimer TECHNIQUE: CT chest CT angiogram with reconstructions PRIORS: None. FINDINGS: There is no evidence of filling defect within the central pulmonary vasculature to suggest the presence of acute pulmonary embolus. No evidence of mediastinal pathologic lymph node enlargement Heart and great vessels are unremarkable. The aorta is normal in caliber. No focal pulmonary infiltrate identified. No pleural fluid collection seen. No acute pulmonary abnormality noted. Visualized portion of the upper abdomen demonstrates no acute change. IMPRESSION: Negative. No CT evidence of acute pulmonary embolus Transcribed By: [facility] Dictated By: ALEKSANDR MARIN MD Electronically Authenticated By: ALEKSANDR MARIN MD Signed Date/Time: 05/13/181641 DD/ 41 TD/TT: 05/13/181641 - Medical Decision Making This is a 47-year-old female patient here complained of dizziness and chest tightness which shortness of breath unable to get focused. She says she was here 2 days ago but there is no record to confirm that. Her last visit was in January 2018 and they did multiple workup on her to include cardiac stress test which was negative. She had lab work done which were within normal limits. Patient was also admitted and seen by cardiologists. Patient here to be evaluated for multiple complaints I discussed this case with Dr. Garcia and he agrees with treatment plan. He also evaluated patient. Patient was screened and examined by myself. Physical exam with normal findings except she has dizzy mucosa pale and boggy with clear drainage and bilateral TM congested. D-dimer elevated, She had CTA of the chest, chest x-ray and CT scan of the head without contrast that was dictated by radiologist and reports examined by myself and they were all negative. EKG with normal sinus rhythm. Patient had CBC, CMP, troponin, TSH and T4 and hCG which are normal levels. EKG, CT scan, CT scan of the head, x-ray and laboratory results with constipation. I explained to her why she had to have the CT scan. IV contrast of the chest due to elevated d-dimer and she voiced understanding. Patient is currently not having any chest pain or shortness of breath. A/P 1: Allergic rhinitis-we'll discharge home on Zyrtec and Flonase. 3: Vertigo-discharge home on Antivert 2: Atypical chest pain-troponin normal findings. Referral to poultry killer. Cardiac stress test negative in January 2018. 3: Shortness of breath-CTA chest reveals no pulmonary embolism and no acute findings. Chest x-ray without any acute cardiopulmonary findings. D-dimer elevated suspect from inflammatory process. CBC is normal and chemistries normal Patient educated on diagnosis, laboratory findings, diagnostics findings, medication, treatment plan. She voiced understanding of discharge plans. Referral to primary care and poultry killer. Patient discharged home in stable condition. Her vital signs are stable and she is afebrile. She states that she is feeling better. I discussed the patient's return to emergency room if her symptoms return otherwise follow-up with cardiology for atypical chest pain and primary care. Discharged home with prescription for Flonase, Zyrtec and Antivert. - Differential Diagnosis ACS, PE, PNA, bronchitis, URI, Critical care attestation.: If time is entered above; I have spent that time in minutes in the direct care of this critically ill patient, excluding procedure time. ED Disposition Clinical Impression: Atypical chest pain, Vertigo, Shortness of breath Allergic rhinitis Qualifiers: Allergic rhinitis trigger: unspecified Allergic rhinitis seasonality: unspecified Qualified Code(s): J30.9 - Allergic rhinitis, unspecified Disposition: DC-01 TO HOME OR SELFCARE Is pt being admited?: No Does the pt Need Aspirin: No Condition: Stable Instructions: Chest Pain (ED), Vertigo (ED), Allergic Rhinitis (ED), Dyspnea ( ED) Additional Instructions: Please follow-up with your primary care physician tomorrow. Continue to refrain from nicotine use Takes Zyrtec and Flonase and this will help to relief nasal congestion Take Antivert as prescribed for dizziness If your symptoms return, return to the emergency room. Follow-up with poultry killer as instructed Prescriptions: Cetirizine HCl [ZyrTEC] 10 mg PO QAM 14 Days #14 capsule Fluticasone [Flonase] 1 spray NS QDAY 14 Days #1 bottle Meclizine [Antivert] 25 mg PO Q8H PRN #12 tablet PRN Reason: Vertigo Referrals: PRIMARY CAREMD [Primary Care Provider] - 05/14/18 ABDIRAHMAN KRAMER MD [Staff Physician] - 05/14/18 Forms: Work/School Release Form(ED)
--- NOTE | 2018-05-13 14:04 | XRay Report ---
CHEST 2 VIEWS INDICATION: Shortness of breath. COMPARISON: 01/24/2018. FINDINGS: PA and lateral chest radiographs demonstrate normal cardiomediastinal silhouette. Clear lungs. Intact bones. CONCLUSION: No acute disease in the chest. Thank you for the opportunity to participate in this patient's care.
[2018-05-13 14:12] LABS: Basophils % (Auto) 0.3 % (0.0-1.8); Eosinophils # (Auto) 0.1 K/mm3 (0.0-0.4); Eosinophils % (Auto) 1.3 % (0.0-4.3); Hematocrit 39.9 % (30.3-42.9); Hemoglobin 13.3 gm/dl (10.1-14.3); Lymphocytes # (Auto) 2.2 K/mm3 (1.2-5.4); Lymphocytes % (Auto) 26.4 % (13.4-35.0); Mean Corpuscular HGB Conc 33 % (30-34); Mean Corpuscular Hemoglobin 31 pg (28-32); Mean Corpuscular Volume 93 fl (79-97); Monocytes # (Auto) 0.5 K/mm3 (0.0-0.8); Monocytes % (Auto) 6.2 % (0.0-7.3); Platelet Count 291 K/mm3 (140-440); Red Cell Distribution Width 13.8 % (13.2-15.2)
[2018-05-13 14:36] LABS: BUN/Creatinine Ratio 19; Blood Urea Nitrogen 13 mg/dL (7-17); Hemolysis Index 7
[2018-05-13 14:40] LABS: Albumin 4.6 g/dL (3.9-5)
[2018-05-13 14:42] LABS: Bilirubin,Direct 0.2 mg/dL (0-0.2)
--- NOTE | 2018-05-13 16:39 | Cat Scan Report ---
FINAL REPORT EXAM: CT HEAD/BRAIN WO CON HISTORY: headache and dizziness TECHNIQUE: CT head without contrast PRIORS: None. FINDINGS: Exam is limited due to motion artifact. Within the limits of the study no acute intra-axial or extra-axial hemorrhage is identified. There is no evidence of midline shift or mass effect. The ventricles and sulci are within normal limits. Mills-white matter differentiation is intact. No acute parenchymal abnormalities seen. Bony calvarium is grossly intact. Visualized portions of the mastoids and paranasal sinuses are unremarkable. IMPRESSION: Some limitations due to motion artifact. No acute abnormality identified
--- NOTE | 2018-05-13 16:46 | Cat Scan Report ---
FINAL REPORT EXAM: CT ANGIO CHEST HISTORY: SOB/CP/elevated D dimer TECHNIQUE: CT chest CT angiogram with reconstructions PRIORS: None. FINDINGS: There is no evidence of filling defect within the central pulmonary vasculature to suggest the presence of acute pulmonary embolus. No evidence of mediastinal pathologic lymph node enlargement Heart and great vessels are unremarkable. The aorta is normal in caliber. No focal pulmonary infiltrate identified. No pleural fluid collection seen. No acute pulmonary abnormality noted. Visualized portion of the upper abdomen demonstrates no acute change. IMPRESSION: Negative. No CT evidence of acute pulmonary embolus
[2018-05-13 17:39] VITALS: BP 161/96
== END 2018-05-13 18:13 | disposition home or self-care (01) ==
LOC: ED 10:22
DX: J30.9 Allergic rhinitis, unspecified (principal); R42 Dizziness and giddiness; R07.89 Other chest pain; R06.02 Shortness of breath; I10 Essential (primary) hypertension; Z87.891 Personal history of nicotine dependence; Z88.6 Allergy status to analgesic agent
CPT/HCPCS: 36415; 70450; 71046; 71275; 80048; 80074; 83735; 84439; 84443; 84484; 84703; 85025; 85379; 93005; 93010; 99284; Q9967